=== PATIENT | male | born 1970 | race Caucasian/White ===

== ENCOUNTER 2016-11-30 16:28 | Emergency (ER) | payer OTHER ==
[~2016-11-30] VITALS: Wt 112.0 kg
[~2016-11-30 16:28] MED LIST: CEPH-443 PO; GUAI120S26 PO; HC1C30 TOP; IBUP-1542 PO
[2016-11-30 17:16] LABS: ADD SCAN DIFF NO
[2016-11-30 17:22] LABS: BASOPHILS % 0.4 % (0.0-2.0); EOSINOPHILS # 0.2 10^3/ul (0.0-0.5); EOSINOPHILS % 1.8 % (0.0-7.0); HEMATOCRIT 46.2 % (42.0-52.0); HEMOGLOBIN 16.1 g/dl (14.0-18.0); LYMPHOCYTES # 3.6 10^3/ul (0.8-2.9); LYMPHOCYTES % 43.2 % (15.0-51.0); MEAN CORPUSCULAR HEMOGLOBIN 30.1 pg (29.0-33.0); MEAN CORPUSCULAR HGB CONC 34.8 g/dl (32.0-37.0); MEAN CORPUSCULAR VOLUME 86.5 fl (82.0-101.0); MEAN PLATELET VOLUME 11.5 fl (7.4-10.4); MONOCYTE # 0.6 10^3/ul (0.3-0.9); MONOCYTES % 7.4 % (0.0-11.0); NEUTROPHIL # 3.9 10^3/ul (1.6-7.5); PLATELET COUNT 196 10^3/UL (140-415); RED BLOOD COUNT 5.34 10^6/ul (4.70-6.10); RED CELL DISTRIBUTION WIDTH 12.3 % (11.5-14.5); WHITE BLOOD COUNT 8.4 10^3/ul (4.8-10.8)
[2016-11-30 17:31] LABS: ALBUMIN 4.3 g/dl (3.3-4.9); ALBUMIN/GLOBULIN RATIO 1.22; BILIRUBIN,INDIRECT 0.2 mg/dl (0-1.1); BILIRUBIN,TOTAL 0.2 mg/dl (0.2-1.3); CALCIUM 8.9 mg/dl (8.4-10.2); CREATININE 1.12 mg/dl (0.61-1.24); POTASSIUM 3.9 mmol/L (3.5-5.1); TOTAL PROTEIN 7.8 g/dl (6.1-8.1)
[2016-11-30 17:44] LABS: ADD UMIC NO; URINE BILIRUBIN (Dip) NEGATIVE (NEGATIVE); URINE BLOOD (Dip) NEGATIVE (NEGATIVE); URINE COLOR LT. YELLOW (YELLOW); URINE GLUCOSE (Dip) NEGATIVE (NEGATIVE); URINE KETONES (Dip) TRACE (NEGATIVE); URINE LEUKOCYTE ESTERASE (Dip) NEGATIVE (NEGATIVE); URINE NITRITE (Dip) NEGATIVE (NEGATIVE); URINE TOTAL PROTEIN (Dip) NEGATIVE (NEGATIVE); URINE UROBILINOGEN (Dip) 1.0 E.U./dL (0.1-1.0)
[2016-11-30] MEDS ORDERED: CIPR500T4 PO ×2 (19:12→19:13)
[2016-11-30] MEDS ORDERED: METR500T PO (19:13)
[2016-11-30] MEDS ORDERED: DICY10CA60 PO (19:13)
--- NOTE | 2016-11-30 19:20 | ERD ---
ER Documentation Chief Complaint Date/Time DATE: 11/30/16 TIME: 19:15 Chief Complaint abd pain, diarrhea x2 mo HPI Patient is a 46-year-old male who presents to the emergency department with abdominal pain and diarrhea 2 months. Patient describes his abdominal pain to be diffuse and crampy in nature. Patient study approximately 3-4 episodes of nonbloody, mucousy, malodorous, brown liquidy episodes of diarrhea. Patient denies any recent antibiotic use. Patient denies any recent travel. Patient denies any fevers, chills, nausea, vomiting. Patient denies any chest pain, shortness of breath, diaphoresis, loss consciousness. Patient denies any other individuals in his family with similar symptoms. ROS All systems reviewed and are negative except as per history of present illness. Medications Home Meds Active Scripts Dicyclomine Hcl* (Bentyl*) 10 Mg Capsule, 10 MG PO QID, #20 CAP Prov:NITIN ART PA-C 11/30/16 Metronidazole* (Flagyl*) 500 Mg Tablet, 500 MG PO TID for 5 Days, TAB Prov:NITIN ART PA-C 11/30/16 Ciprofloxacin Hcl* (Ciprofloxacin Hcl*) 500 Mg Tablet, 500 MG PO BID for 5 Days , TAB Prov:NITIN ART PA-C 11/30/16 Ibuprofen* (Motrin*) 600 Mg Tab, 600 MG PO Q6, #30 TAB Prov:ROSEANNA ALANIS PA-C 05/21/16 Ufutxtazlzf-N-Alrvunyxim Hb* (Guaifenesin* DM Syrup) 120 Ml Syrup, 10 ML PO Q4H Y for COUGH, #120 ML Prov:ROSEANNA ALANIS PA-C 05/21/16 Cephalexin* (Keflex*) 500 Mg Capsule, 500 MG PO QID for 7 Days, CAP Prov:TRUDY MCCARTNEY PA-C 03/18/16 Hydrocortisone* Topical (Hydrocortisone* Topical) 1%-28.35 Gm Cream..g., 1 APPLIC TOP BID Y for ITCHING, #1 TUB Prov:TRUDY MCCARTNEY PA-C 03/18/16 Discontinued Scripts Ciprofloxacin Hcl* (Ciprofloxacin Hcl*) 500 Mg Tablet, 500 MG PO BID for 3 Days , TAB Prov:NITIN ART PA-C 11/30/16 Allergies Allergies: Coded Allergies: No Known Allergy (Unverified , 05/21/16) PMhx/Soc History of Surgery: No Anesthesia Reaction: No Hx Neurological Disorder: No Hx Respiratory Disorders: No Hx Cardiac Disorders: No Hx Psychiatric Problems: No Hx Miscellaneous Medical Probl: Yes (HIV POSITIVE) Hx Alcohol Use: No Hx Substance Use: No Hx Tobacco Use: No Physical Exam Vitals Vital Signs Date Time Temp Pulse Resp B/P Pulse Ox O2 Delivery O2 Flow Rate FiO2 11/30/16 21:32 98.0 68 20 134/94 99 Room Air 11/30/16 16:44 98.1 75 20 145/92 95 Physical Exam GENERAL: Well-developed, well-nourished male. Appears in no acute distress. HEAD: Normocephalic, atraumatic. EYES: Pupils are equally reactive bilaterally. EOMs grossly intact. No conjunctival erythema. No conjunctival pallor ENT: Moist mucous membranes. No uvula deviation. No kissing tonsils. NECK: Supple. No meningismus. Normal range of motion of the neck. LUNG: Clear to auscultation bilaterally. No rhonchi, wheezing, rales or coarse breath sounds. HEART: Regular rate and rhythm. No murmurs, rubs or gallops. ABDOMEN: No scars, ecchymosis or rashes noted. Soft, and nondistended. Nontender to palpation of all 4 quadrants. Positive bowel sounds in all four quadrants. No rebound tenderness, no guarding. (-) McBurney's point tenderness. No CVA tenderness. BACK: No midline tenderness. EXTREMITIES: Equal pulses bilaterally. No peripheral clubbing, cyanosis or edema. No unilateral leg swelling. NEUROLOGIC: Alert and oriented. Moving all four extremities without any difficulty. Normal speech. Steady gait. SKIN: Normal color. Warm and dry. No rashes or lesions. Result Diagram: 11/30/16 1715 11/30/16 1715 Results 24 hrs Laboratory Tests Test 11/30/16 17:15 White Blood Count 8.410^3/ul Red Blood Count 5.3410^6/ul Hemoglobin 16.1g/dl Hematocrit 46.2% Mean Corpuscular Volume 86.5fl Mean Corpuscular Hemoglobin 30.1pg Mean Corpuscular Hemoglobin Concent 34.8g/dl Red Cell Distribution Width 12.3% Platelet Count 76719^3/UL Mean Platelet Volume 11.5fl Neutrophils % 47.0% Lymphocytes % 43.2% Monocytes % 7.4% Eosinophils % 1.8% Basophils % 0.4% Nucleated Red Blood Cells % 0.0/100WBC Neutrophils # 3.910^3/ul Lymphocytes # 3.610^3/ul Monocytes # 0.610^3/ul Eosinophils # 0.210^3/ul Basophils # 0.010^3/ul Nucleated Red Blood Cells # 0.010^3/ul Urine Color LT. YELLOW Urine Clarity CLEAR Urine pH 6.0 Urine Specific [place] 1.025 Urine Ketones TRACE Urine Nitrite NEGATIVE Urine Bilirubin NEGATIVE Urine Urobilinogen 1.0 E.U./dL Urine Leukocyte Esterase NEGATIVE Urine Hemoglobin NEGATIVE Urine Glucose NEGATIVE% Urine Total Protein NEGATIVE Sodium Level 139mmol/L Potassium Level 3.9mmol/L Chloride Level 106mmol/L Carbon Dioxide Level 24mmol/L Anion Gap 13 Blood Urea Nitrogen 13mg/dl Creatinine 1.12mg/dl Glucose Level 108mg/dl Calcium Level 8.9mg/dl Total Bilirubin 0.2mg/dl Direct Bilirubin 0.00mg/dl Indirect Bilirubin 0.2mg/dl Aspartate Amino Transf (AST/SGOT) 50IU/L Alanine Aminotransferase (ALT/SGPT) 58IU/L Alkaline Phosphatase 109IU/L Total Protein 7.8g/dl Albumin 4.3g/dl Globulin 3.50g/dl Albumin/Globulin Ratio 1.22 Lipase 131U/L Procedures/MDM ED COURSE: The patient was stable throughout ED course. I kept the patient and/or family informed of laboratory and diagnostic imaging results throughout the ED course. DIAGNOSTIC IMAGING: Read by radiologist. Patient Name Jae Monroe Study Date 11/30/2016 5:53 PM Patient 1970 Accession No. [id number] Referring Physician Nitin Art Pa-c CLINICAL INDICATION: Abdominal Pain TECHNIQUE: AP abdomen x-ray. COMPARISON: None. FINDINGS: There is stool and bowel gas scattered throughout the colon. There is no evidence of small bowel obstruction. There are no abnormal calcifications overlying the urinary tracts. The osseus structures are unremarkable. IMPRESSION: No definite abnormalities are identified. RPTAT:AAJS Signed By: Jesus Elena M.d 11/30/2016 6:56:52 PM MEDICAL DECISION MAKING: This is a 46-year-old male who presents with diffuse abdominal pain and diarrhea 2 months. Anabiotic use or recent travel. Vital signs were reviewed. Patient is afebrile. CBC showed no evidence of systemic infection or severe anemia. CMP showed no evidence of electrolyte abnormalities, severe acidosis, alkalosis, renal failure, or liver disease.Lipase showed no evidence of acute pancreatitis. UA showed no evidence of acute infection or hematuria. KUB was unremarkable. At this time, patient's presentation is most consistent with diarrhea unknown etiology. Given that patient's symptoms have lasted for > 2 months, source may be infectious. I have a much lower clinical concern for acute coronary syndrome , AAA, mesenteric ischemia, lower lobe pneumonia, DKA, bowel perforation, cholecystitis, choledocholithiasis, ascending cholangitis, hepatic abscess, pancreatitis, PUD, diverticulitis, UTI, pyelonephritis, nephrolithiasis, appendicitis, toxic megacolon, ileus. Stool studies were ordered however patient was unable to provide a sample today. Patient was advised that he will need to follow-up with his primary care physician for stool studies. At this time unable to rule out the definitive cause of the patient's diarrhea. I will treat the patient empirically with antibiotics at this time. PRESCRIPTIONS: Bentyl, Flagyl, Shardaro DISCHARGE: At this time, patient is stable for discharge and outpatient management. Patient was advised to follow-up with his primary care physician for stool studies. Patient given a copy of all imaging and blood work obtained today. I have instructed the patient to follow-up with his/her primary care physician in 1-2 days. Patient was advised that he will need to follow-up with his primary care physician and/or GI specialist for any further symptoms. I have instructed the patient to promptly return to the ER at any time for any new or worsening symptoms including increased pain, nausea, vomiting, diarrhea, fever, weakness or LOC. The patient and/or family expressed understanding of and agreement with this plan. All questions were answered. Home care instructions were provided. Departure Diagnosis: Primary Impression: Diarrhea Diarrhea type: unspecified type Qualified Code: R19.7 - Diarrhea, unspecified type Condition: Stable Patient Instructions: Treating Diarrhea Referrals: [facility] Additional Instructions: Call your primary care doctor TOMORROW for an appointment during the next 1-2 days.See the doctor sooner or return here if your condition worsens before your appointment time. Follow-up with your primary care physician for stool studies. Unable to rule out definitive cause of diarrhea at this time. NITIN ART PA-C Nov 30, 2016 19:20
[2016-11-30 21:32] VITALS: BP 134/94; PULSE 68; RESP 20; TEMP 98
--- NOTE | 2016-12-03 21:46 | RADRPT ---
PROCEDURE: XR Abdomen. CLINICAL INDICATION: Abdominal Pain TECHNIQUE: AP abdomen x-ray. COMPARISON: None. FINDINGS: There is stool and bowel gas scattered throughout the colon. There is no evidence of small bowel ob struction. There are no abnormal calcifications overlying the urinary tracts. The osseus structures are unremarkable. IMPRESSION: No definite abnormalities are identified. RPTAT:AAJJ Jesus Elena Physician Date Time Electronically viewed and signed by Jesus Elena Physician on 11/30/2016 18:56 /
== END 2016-11-30 21:32 | disposition home or self-care (01) ==
LOC: FTE 16:28
DX: R19.7 Diarrhea, unspecified (principal); Z21 Asymptomatic human immunodeficiency virus [HIV] infection status
CPT/HCPCS: 36415; 74000; 80053; 81003; 83690; 85025

== ENCOUNTER 2017-01-20 13:19 | Emergency (ER) | payer OTHER ==
[~2017-01-20] VITALS: Ht 172.7 cm; Wt 111.5 kg
[~2017-01-20 13:19] MED LIST changes: +CIPR500T4 PO; +DICY10CA60 PO; +METR500T PO
[2017-01-20 13:32] VITALS: Ht 172.7 cm; Wt 111.5 kg
[2017-01-20] MEDS ORDERED: PROM5SYR2 PO (14:26)
[2017-01-20] MEDS ORDERED: ACET325T33 PO (14:26)
[2017-01-20] MEDS ORDERED: AZIT250T94 PO (14:26)
[2017-01-20] MEDS ORDERED: SODI30SP2 NS (14:26)
--- NOTE | 2017-01-20 14:57 | ERD ---
ER Documentation Chief Complaint Date/Time DATE: 01/20/17 TIME: 14:56 Chief Complaint FEVER,COUGH,LAWSON,BACK PAIN HPI This is a 46-year-old male presenting to the emergency department complaining of fever, sore throat, cough, headache, nasal congestion for the past 2 days. Patient rates as moderate in severity. He states that he has tried lozenges without any relief. Patient admits to having thoracic and lumbar back pain, describing it as achy and constant and worse with cough. Patient denies any vomiting, diarrhea, shortness of breath or chest pain ROS All systems reviewed and are negative except as per history of present illness. Medications Home Meds Active Scripts Acetaminophen* (Tylenol*) 325 Mg Tablet, 2 TAB PO Q6 Y for PAIN AND OR ELEVATED TEMP, #20 TAB Prov:ADRIA TONEY PA-C 01/20/17 Promethazine HCl/Codeine (Prometh-Codein 6.25-10 mg/5 ml) 5 Ml Syrup, 5 ML PO Q6 , #60 ML Prov:ADRIA TONEY PA-C 01/20/17 Azithromycin* (Zithromax*) 250 Mg Tablet, 250 MG PO .ZPACK DIRECTED, #6 TAB TAKE 500 MG (2 TABS) THE FIRST DAY THEN 250 MG (1 TAB) DAYS 2-5 Prov:ADRIA TONEY PA-C 01/20/17 Sodium Chloride (Saline Nasal [place]) 30 Ml [place], 30 ML NS BID for 5 Days, SPRAY Prov:ADRIA TONEY PA-C 01/20/17 Dicyclomine Hcl* (Bentyl*) 10 Mg Capsule, 10 MG PO QID, #20 CAP Prov:NITIN MAHONEY PA-C 11/30/16 Metronidazole* (Flagyl*) 500 Mg Tablet, 500 MG PO TID for 5 Days, TAB Prov:NITIN MAHONEY PA-C 11/30/16 Ciprofloxacin Hcl* (Ciprofloxacin Hcl*) 500 Mg Tablet, 500 MG PO BID for 5 Days , TAB Prov:NITIN MAHONEY PA-C 11/30/16 Ibuprofen* (Motrin*) 600 Mg Tab, 600 MG PO Q6, #30 TAB Prov:ROSEANNA ALANIS PA-C 05/21/16 Hipqtpgcuvs-M-Ajfyharyuh Hb* (Guaifenesin* DM Syrup) 120 Ml Syrup, 10 ML PO Q4H Y for COUGH, #120 ML Prov:ROSEANNA ALANISKarina CASSIDY 05/21/16 Cephalexin* (Keflex*) 500 Mg Capsule, 500 MG PO QID for 7 Days, CAP Prov:TRUDY MCCARTNEY PA-C 03/18/16 Hydrocortisone* Topical (Hydrocortisone* Topical) 1%-28.35 Gm Cream..g., 1 APPLIC TOP BID Y for ITCHING, #1 TUB Prov:TRUDY MCCARTNEY PA-C 03/18/16 Allergies Allergies: Coded Allergies: No Known Allergy (Unverified , 05/21/16) PMhx/Soc History of Surgery: No Anesthesia Reaction: No Hx Neurological Disorder: No Hx Respiratory Disorders: No Hx Cardiac Disorders: No Hx Psychiatric Problems: No Hx Miscellaneous Medical Probl: Yes (HIV POSITIVE) Hx Alcohol Use: No Hx Substance Use: No Hx Tobacco Use: No Physical Exam Vitals Vital Signs Date Time Temp Pulse Resp B/P Pulse Ox O2 Delivery O2 Flow Rate FiO2 01/20/17 13:32 99.1 88 18 141/85 98 Physical Exam GENERAL: well-developed/well-nourished, in no apparent distress, non-toxic appearing HEAD: NC/AT, no swelling noted in frontal or maxillary areas EARS: bilateral tympanic membrane is intact without erythema or effusion NARES: Congested THROAT: oropharynx non-erythematous EYES: Conjunctiva normal NECK: Supple, no lymphadenopathy PULM: CTA bilaterally, no rales, rhonchi, or wheezing heard CV: Normal S1S2, RRR, good capillary refill GI: Soft, non-distended, normal bowel sounds, non-tender BACK: No midline tenderness, no masses EXT No clubbing, cyanosis, or edema NEURO: Alert and Orientated SKIN: Intact, normal turgor PSYCH: Normal mood and mentation Procedures/MDM MDM: 46-year-old male presents to the ER with upper respiratory infection, which is most likely viral. My clinical suspicion is low suspicion for pneumonia , strep pharyngitis, or pulmonary emergencies due to physical examination. Patient's lungs were clear on examination. DISPOSITION: hemodynamically stable for discharge for home. Prescription for promethazine with codeine, Flonase, Tylenol was given to patient, discussed to return to the ED if not improving as expected or follow-up with a primary care physician. Patient understood and agreed with this plan. Departure Diagnosis: Primary Impression: URI (upper respiratory infection) Condition: Stable Patient Instructions: Preventing Common Respiratory Infections, Uri, Viral, No Abx (Adult) Additional Instructions: Visite a gutiérrez mdico shashiana para un EXAMEN.Regrese a estas instalaciones si no se mejora annemarie esperbamos o annemarie le dijimos. Marcus toda la medicina lisy y annemarie se le indic. Regrese a estas instalaciones si no se mejora annemarie esperbamos o annemarie le dijimos. La medicina que se le recet puede causarle sueo.NO DEBE MANEJAR NI OPERAR MAQUINARIAS PELIGROSAS mientras esta tomando esta medicina! ADRIA TONEY PA-C Jan 20, 2017 14:57
== END 2017-01-20 14:28 | disposition home or self-care (01) ==
LOC: E/R 13:19
DX: J06.9 Acute upper respiratory infection, unspecified (principal)
CPT/HCPCS: 99284

== ENCOUNTER 2017-02-09 18:53 | Emergency (ER) | payer OTHER ==
[~2017-02-09] VITALS: Wt 112.5 kg
[~2017-02-09 18:53] MED LIST changes: +ACET325T33 PO; +AZIT250T94 PO; +PROM5SYR2 PO; +SODI30SP2 NS
[2017-02-09] MEDS ORDERED: ONDANSETRON 4 MG INJ IV STA (19:21)
[2017-02-09] MEDS ORDERED: SOD CHLORIDE 0.9% 1,000 ML IV STA (19:21)
[2017-02-09] MEDS ORDERED: FAMOTIDINE 20 MG INJ IV STA (19:21)
[2017-02-09 19:25] LABS: URINE BLOOD (Dip) POC 3+ (NEGATIVE)
[2017-02-09 19:37] LABS: ADD SCAN DIFF NO
[2017-02-09 19:38] LABS: BASOPHILS % 0.3 % (0.0-2.0); EOSINOPHILS % 0.3 % (0.0-7.0); HEMATOCRIT 44.6 % (42.0-52.0); HEMOGLOBIN 15.6 g/dl (14.0-18.0); LYMPHOCYTES # 1.5 10^3/ul (0.8-2.9); LYMPHOCYTES % 12.8 % (15.0-51.0); MEAN CORPUSCULAR HEMOGLOBIN 30.5 pg (29.0-33.0); MEAN CORPUSCULAR VOLUME 87.3 fl (82.0-101.0); MEAN PLATELET VOLUME 11.4 fl (7.4-10.4); MONOCYTE # 0.7 10^3/ul (0.3-0.9); MONOCYTES % 6.3 % (0.0-11.0); NEUTROPHIL # 9.4 10^3/ul (1.6-7.5); PLATELET COUNT 172 10^3/UL (140-415); RED BLOOD COUNT 5.11 10^6/ul (4.70-6.10); RED CELL DISTRIBUTION WIDTH 12.5 % (11.5-14.5); WHITE BLOOD COUNT 11.7 10^3/ul (4.8-10.8)
[2017-02-09 20:02] LABS: ADD UMIC YES; UR ASCORBIC ACID NEGATIVE (NEGATIVE); UR BILIRUBIN (Dip) NEGATIVE (NEGATIVE); UR BLOOD (Dip) 3+ mg/dL (NEGATIVE); UR BUDDING YEAST FEW /HPF (NONE SEEN); UR CLARITY CLOUDY (CLEAR); UR COLOR YELLOW (YELLOW); UR GLUCOSE (Dip) NEGATIVE (NEGATIVE); UR KETONES (Dip) NEGATIVE (NEGATIVE); UR LEUKOCYTE ESTERASE (Dip) NEGATIVE Leu/ul (NEGATIVE); UR MUCUS FEW /HPF (NONE SEEN); UR NITRITE (Dip) NEGATIVE (NEGATIVE); UR RBC > 182 /HPF (0-5); UR SPECIFIC GRAVITY (Dip) 1.028 (1.003-1.030); UR TOTAL PROTEIN (Dip) 1+ mg/dl (NEGATIVE); UR UROBILINOGEN (Dip) NEGATIVE (NEGATIVE)
[2017-02-09 20:02] LABS: ALBUMIN/GLOBULIN RATIO 1.51; BILIRUBIN,INDIRECT 0.2 mg/dl (0-1.1); BILIRUBIN,TOTAL 0.2 mg/dl (0.2-1.3); CALCIUM 9.2 mg/dl (8.4-10.2); CREATININE 1.4 mg/dl (0.61-1.24); POTASSIUM 4.1 mmol/L (3.5-5.1); TOTAL PROTEIN 8.3 g/dl (6.1-8.1)
[2017-02-09] MEDS ORDERED: morphine 4 MG/ML VIAL IV STA (20:11)
--- NOTE | 2017-02-09 20:35 | RADRPT ---
PROCEDURE: CT Abdomen and Pelvis without contrast CLINICAL INDICATION: The abdominal pain TECHNIQUE: Transaxial images were obtained through the abdomen and pelvis on a multi-slice scanner without the intravenous contrast administration. No oral contrast had previously been given. Sagit lisy and coronal re-formations were subsequently reconstructed. One or more of the following dose reduction techniques were used: - Automated exposure control. - Adjustment of the mA and/or kV according to patient size. - Use of iterative reconstruction technique. Radiation dose: CTDIvol = 22.60 mGy; DLP = 1572.35 mGy-cm. COMPARISON: No prior studies are available for comparison. FINDINGS: Lung bases: The visualized lung bases appear unremarkable. Liver: The liver is enlarged and appears diffusely fatty infiltrated with no focal lesion evident. Gallbladder: The wall is not thickened. No radiopaque stones are identified. Bile ducts: The intra and extrahepatic bile ducts are normal in caliber. Pancreas: Appears normal with no mass or inflammation evident. Spleen: Normal in size with no focal lesion. Adrenals: Normal with no mass identified. Kidneys, ureters and bladder: The right kidney and ureter appear unremarkable. On the left, there i s a 7 x 6 x 4 mm ureterolith seen in the mid left ureter associated with moderate left hydronephrosi s and proximal hydroureter with perinephric stranding. No nephrolith is evident. The distal ureter appears unremarkable as does the bladder. Reproductive organs: Unremarkable. Stomach and bowel: The stomach and bowel appear unremarkable without evidence of obstruction or infl ammation. A few diverticuli are seen within the sigmoid colon without evidence of diverticulitis. Appendix: A normal vermiform appendix is evident. Peritoneum: No free intraperitoneal fluid or air is identified. Tiny bilateral fat containing inguin al hernias are noted. Aorta: Normal in caliber with no aneurysmal dilatation. IVC: Unremarkable. Lymph nodes: No pathologically enlarged nodes are identified. Osseous structures: The osseous elements appear intact. IMPRESSION: 1. A 7 x 6 x 4 mm ureterolith is seen in the mid left ureter associated moderate left hydronephrosi s, perinephric stranding, and proximal hydroureter. The left kidney and left ureter appear unremark able as does the bladder. 2. There are a few diverticuli within the sigmoid colon but there is no evidence of bowel obstructi on or inflammation with a normal-appearing vermiform appendix. 3. Hepatomegaly with diffuse fatty infiltration. 4. Tiny fat containing inguinal hernias. Physician Deepak Date Time Electronically viewed and signed by Pauline Moulton Physician on 02/09/2017 20:35 /
--- NOTE | 2017-02-09 20:41 | ERD ---
ER Documentation Chief Complaint Date/Time DATE: 02/09/17 TIME: 20:39 Chief Complaint left abd pain x 4 hours HPI This is a 46-year-old male who presents to the emergency room for evaluation of left-sided abdominal pain that he has had for the past 4 hours. The patient states that his pain as a sharp pain with mild radiation to the groin. He denies any painful urination or dysuria. The patient denies any blood in his urine and came to the ER today for evaluation. He denies any aggravating or relieving factors for his pain ROS All systems reviewed and are negative except as per history of present illness. Medications Home Meds Active Scripts Acetaminophen* (Tylenol*) 325 Mg Tablet, 2 TAB PO Q6 Y for PAIN AND OR ELEVATED TEMP, #20 TAB Prov:ADRIA TONEY PA-C 01/20/17 Promethazine HCl/Codeine (Prometh-Codein 6.25-10 mg/5 ml) 5 Ml Syrup, 5 ML PO Q6 , #60 ML Prov:ADRIA TONEY PA-C 01/20/17 Azithromycin* (Zithromax*) 250 Mg Tablet, 250 MG PO .ZPACK DIRECTED, #6 TAB TAKE 500 MG (2 TABS) THE FIRST DAY THEN 250 MG (1 TAB) DAYS 2-5 Prov:ADRIA TONEY PA-C 01/20/17 Sodium Chloride (Saline Nasal [place]) 30 Ml [place], 30 ML NS BID for 5 Days, SPRAY Prov:ADRIA TONEY PA-C 01/20/17 Dicyclomine Hcl* (Bentyl*) 10 Mg Capsule, 10 MG PO QID, #20 CAP Prov:NITIN MAHONEY PA-C 11/30/16 Metronidazole* (Flagyl*) 500 Mg Tablet, 500 MG PO TID for 5 Days, TAB Prov:NITIN MAHONEY PA-C 11/30/16 Ciprofloxacin Hcl* (Ciprofloxacin Hcl*) 500 Mg Tablet, 500 MG PO BID for 5 Days , TAB Prov:NITIN MAHONEY PA-C 11/30/16 Ibuprofen* (Motrin*) 600 Mg Tab, 600 MG PO Q6, #30 TAB Prov:ROSEANNA ALANIS PA-C 05/21/16 Rfmrjnsiizt-W-Guxhfwveov Hb* (Guaifenesin* DM Syrup) 120 Ml Syrup, 10 ML PO Q4H Y for COUGH, #120 ML Prov:ROSEANNA ALANISKarina CASSIDY 05/21/16 Cephalexin* (Keflex*) 500 Mg Capsule, 500 MG PO QID for 7 Days, CAP Prov:TRUDY MCCARTNEY PA-C 03/18/16 Hydrocortisone* Topical (Hydrocortisone* Topical) 1%-28.35 Gm Cream..g., 1 APPLIC TOP BID Y for ITCHING, #1 TUB Prov:TRUDY MCCARTNEY PA-C 03/18/16 Allergies Allergies: Coded Allergies: No Known Allergy (Unverified , 02/09/17) PMhx/Soc History of Surgery: No Anesthesia Reaction: No Hx Neurological Disorder: No Hx Respiratory Disorders: No Hx Cardiac Disorders: No Hx Psychiatric Problems: No Hx Miscellaneous Medical Probl: Yes (HIV POSITIVE) Hx Alcohol Use: No Hx Substance Use: No Hx Tobacco Use: No Smoking Status: Never smoker Physical Exam Vitals Vital Signs Date Time Temp Pulse Resp B/P Pulse Ox O2 Delivery O2 Flow Rate FiO2 02/09/17 18:55 96.4 69 16 156/67 96 Physical Exam INITIAL VITAL SIGNS: Reviewed by me GENERAL: The patient is well developed and appropriate for usual state of health in no apparent distress HEENT: Pupils equal, round, and reactive to light. EOMI. There is no scleral icterus. NECK: C-spine is soft and supple, there is no meningismus. There is no cervical lymphadenopathy. LUNGS: Clear to auscultation bilaterally. There are no rales, wheezes or rhonchi. HEART: Regular rate and rhythm, no murmurs, clicks, rubs or gallops. ABDOMEN: Left-sided CVAT, otherwise soft, non-tender, non-distended. There are bowel sounds in all four quadrants. No rebound or guarding. EXTREMITIES: There is no peripheral cyanosis or edema. No focal swelling or erythema. NEUROLOGICAL: The patient moves all four extremities with 5/5 strength. Cranial nerves II - XII are intact. Normal gait. Alert and oriented SKIN: There is no apparent rash or petechiae. HEME/LYMPHATIC: There is no evidence of excessive bruising or lymphedema. PSYCHIATRIC: The patient does not appear anxious or depressed. Result Diagram: 02/09/17192902/09/171929 Results 24 hrs Laboratory Tests Test 02/09/17 19:25 02/09/17 19:29 02/09/17 19:30 Urine Color YELLOW Urine Clarity CLOUDY Urine pH 5.0 Urine Specific [place] 1.028 Urine Ketones NEGATIVEmg/dL Urine Nitrite NEGATIVEmg/dL Urine Bilirubin NEGATIVEmg/dL Urine Urobilinogen NEGATIVEmg/dL Urine Leukocyte Esterase NEGATIVELeu/ul Urine Microscopic RBC > 182/HPF Urine Microscopic WBC 1/HPF Urine Calcium Oxalate Crystals FEW/HPF Urine Mucus FEW/HPF Urine Yeast (Budding) FEW/HPF Urine Hemoglobin 3+mg/dL Urine Glucose NEGATIVEmg/dL Urine Total Protein 1+mg/dl Bedside Urine pH (LAB) 5.5 Bedside Urine Protein (LAB) 2+ Bedside Urine Glucose (UA) Negative Bedside Urine Ketones (LAB) Negative Bedside Urine Blood 3+ Bedside Urine Nitrite (LAB) Negative Bedside Urine Leukocyte Esterase (L Negative White Blood Count 11.710^3/ul Red Blood Count 5.1110^6/ul Hemoglobin 15.6g/dl Hematocrit 44.6% Mean Corpuscular Volume 87.3fl Mean Corpuscular Hemoglobin 30.5pg Mean Corpuscular Hemoglobin Concent 35.0g/dl Red Cell Distribution Width 12.5% Platelet Count 37061^3/UL Mean Platelet Volume 11.4fl Neutrophils % 80.0% Lymphocytes % 12.8% Monocytes % 6.3% Eosinophils % 0.3% Basophils % 0.3% Nucleated Red Blood Cells % 0.0/100WBC Neutrophils # 9.410^3/ul Lymphocytes # 1.510^3/ul Monocytes # 0.710^3/ul Eosinophils # 0.010^3/ul Basophils # 0.010^3/ul Nucleated Red Blood Cells # 0.010^3/ul Sodium Level 143mmol/L Potassium Level 4.1mmol/L Chloride Level 107mmol/L Carbon Dioxide Level 25mmol/L Anion Gap 15 Blood Urea Nitrogen 17mg/dl Creatinine 1.40mg/dl Glucose Level 126mg/dl Calcium Level 9.2mg/dl Total Bilirubin 0.2mg/dl Direct Bilirubin 0.00mg/dl Indirect Bilirubin 0.2mg/dl Aspartate Amino Transf (AST/SGOT) 45IU/L Alanine Aminotransferase (ALT/SGPT) 63IU/L Alkaline Phosphatase 108IU/L Total Protein 8.3g/dl Albumin 5.0g/dl Globulin 3.30g/dl Albumin/Globulin Ratio 1.51 Lipase 140U/L Current Medications Medications (Trade) Dose Ordered Sig/Ramakrishna Route PRN Reason Start Time Stop Time Status Last Admin Dose Admin Sodium Chloride (NS) 1,000 ml @ 1,000 mls/hr Q1H STAT IV 02/09/17 19:21 02/09/17 20:20 DC 02/09/17 19:30 Ondansetron HCl (Zofran Inj) 4 mg ONCE STAT IV 02/09/17 19:21 02/09/17 19:23 DC 02/09/17 19:30 Famotidine (Pepcid Iv) 20 mg ONCE STAT IV 02/09/17 19:21 02/09/17 19:23 DC 02/09/17 19:30 Morphine Sulfate (morphine) 4 mg ONCE STAT IV 02/09/17 20:11 02/09/17 20:12 DC 02/09/17 20:15 Procedures/MDM CT abdomen pelvis without: 1. A 7 x 6 x 4 mm ureterolith is seen in the mid left ureter associated moderate left hydronephrosis, perinephric stranding, and proximal hydroureter. The left kidney and left ureter appear unremarkable as does the bladder. 2. There are a few diverticuli within the sigmoid colon but there is no evidence of bowel obstruction or inflammation with a normal-appearing vermiform appendix. 3. Hepatomegaly with diffuse fatty infiltration. 4. Tiny fat containing inguinal hernias. This 46-year-old male presents to the ER for evaluation of left-sided abdominal pain that he has had for the past 4 hours. The patient did have some left- sided CVAT on my examination. A urinalysis does reveal blood in urine. Lab work was obtained and a CT was obtained which did confirm my suspicion of a left -sided ureterolith. The patient is a afebrile, no white blood cells in the urine and is urinating without difficulty. The patient's pain is controlled with morphine in the ER and he will be discharged home with a prescription for [place] and Flomax with instructions to follow with his primary care physician or return to the ER if his symptoms do not improve. Departure Diagnosis: Primary Impression: Ureterolithiasis Additional Impressions: Left flank pain Acute left flank pain Condition: Stable JULI SAMANIEGO DO Feb 09, 2017 20:41
[2017-02-09] MEDS ORDERED: HYDR-906 PO (20:42)
[2017-02-09] MEDS ORDERED: TAMS-14 PO (20:42)
[2017-02-09] MEDS ORDERED: TAMSULOSIN (SR) 0.4 MG CAP PO ONE (21:00)
== END 2017-02-09 21:24 | disposition home or self-care (01) ==
LOC: FTE 18:53
DX: N20.1 Calculus of ureter (principal)
CPT/HCPCS: 74176; 80053; 81001; 83690; 85025; 96374; 96375; J2270; J2405; J7030; Z7502; Z7610; 81003

== ENCOUNTER 2017-03-04 16:02 | Emergency (ER) | payer OTHER ==
[~2017-03-04] VITALS: Ht 170.2 cm; Wt 112.0 kg
[~2017-03-04 16:02] MED LIST changes: +HYDR-906 PO; +TAMS-14 PO
[2017-03-04 16:05] VITALS: Ht 170.2 cm; Wt 112.0 kg
[2017-03-04] MEDS ORDERED: SOD CHLORIDE 0.9% 1,000 ML IV STA (16:36)
[2017-03-04] MEDS ORDERED: ONDANSETRON 4 MG INJ IV STA (16:36)
[2017-03-04] MEDS ORDERED: KETOROLAC 30 MG INJ IV STA (16:36)
[2017-03-04 16:54] LABS: ADD SCAN DIFF NO
[2017-03-04 16:55] LABS: BASOPHIL # 0.1 10^3/ul (0.0-0.1); BASOPHILS % 0.5 % (0.0-2.0); EOSINOPHILS # 0.1 10^3/ul (0.0-0.5); EOSINOPHILS % 1.5 % (0.0-7.0); HEMATOCRIT 43.9 % (42.0-52.0); HEMOGLOBIN 15.3 g/dl (14.0-18.0); LYMPHOCYTES # 3.1 10^3/ul (0.8-2.9); LYMPHOCYTES % 32.6 % (15.0-51.0); MEAN CORPUSCULAR HEMOGLOBIN 30.7 pg (29.0-33.0); MEAN CORPUSCULAR HGB CONC 34.9 g/dl (32.0-37.0); MEAN PLATELET VOLUME 11.6 fl (7.4-10.4); MONOCYTE # 0.8 10^3/ul (0.3-0.9); MONOCYTES % 8.4 % (0.0-11.0); NEUTROPHIL # 5.4 10^3/ul (1.6-7.5); NEUTROPHILS % 56.9 % (39.0-77.0); PLATELET COUNT 182 10^3/UL (140-415); RED BLOOD COUNT 4.99 10^6/ul (4.70-6.10); RED CELL DISTRIBUTION WIDTH 12.3 % (11.5-14.5); WHITE BLOOD COUNT 9.5 10^3/ul (4.8-10.8)
--- NOTE | 2017-03-04 16:57 | ERD ---
ER Documentation Chief Complaint Date/Time DATE: 03/04/17 TIME: 16:54 Chief Complaint LLQ PAIN X07/14 W/ NAUSEA HPI This is a 47-year-old male presents to the ER with left lower quadrant pain that started yesterday. Patient had a similar episode 2 weeks ago and was diagnosed with kidney stones. Patient states that pain is intermittent and stabbing in nature it is nonradiating. He has not tried anything for the pain. He admits to nausea however denies vomiting. He also admits to watery nonbloody diarrhea. He denies any fevers or chills. He denies any urinary frequency or dysuria he denies any hematuria. Patient denies any testicular pain. ROS 12 point review of systems was done, all negative except per HPI. Medications Home Meds Active Scripts Tamsulosin Hcl* (Flomax*) 0.4 Mg Cap.er.24h, 0.4 MG PO QPM, #5 CAP Prov:NOÉ PEDROZA 03/04/17 Ondansetron Hcl* (Zofran*) 4 Mg Tab, 4 MG PO Q4H Y for NAUSEA AND OR VOMITING for 5 Days, TAB Prov:NOÉ PEDROZA 03/04/17 Ibuprofen* (Motrin*) 600 Mg Tab, 600 MG PO Q6, #30 TAB Prov:NOÉ PEDROZA 03/04/17 Hydrocodone/Acetaminophen ([place] 5-325 Tablet) 1 Each Tablet, 1 TAB PO Q6H Y for PAIN, #20 TAB Prov:NOÉ PEDROZA 03/04/17 Tamsulosin Hcl* (Flomax*) 0.4 Mg Cap.er.24h, 0.4 MG PO QPM, #10 CAP Prov:JULI SAMANIEGO DO 02/09/17 Hydrocodone/Acetaminophen ([place] 5-325 Tablet) 1 Each Tablet, 1 TAB PO Q6H Y for PAIN, #15 TAB Prov:JULI SAMANIEGO DO 02/09/17 Acetaminophen* (Tylenol*) 325 Mg Tablet, 2 TAB PO Q6 Y for PAIN AND OR ELEVATED TEMP, #20 TAB Prov:ADRIA TONEY PA-C 01/20/17 Promethazine HCl/Codeine (Prometh-Codein 6.25-10 mg/5 ml) 5 Ml Syrup, 5 ML PO Q6 , #60 ML Prov:ADRIA TONEY PA-C 01/20/17 Azithromycin* (Zithromax*) 250 Mg Tablet, 250 MG PO .VíctorPACK DIRECTED, #6 TAB TAKE 500 MG (2 TABS) THE FIRST DAY THEN 250 MG (1 TAB) DAYS 2-5 Prov:ADRIA TONEY PA-C 01/20/17 Sodium Chloride (Saline Nasal [place]) 30 Ml [place], 30 ML NS BID for 5 Days, SPRAY Prov:ADRIA TONEY PA-C 01/20/17 Dicyclomine Hcl* (Bentyl*) 10 Mg Capsule, 10 MG PO QID, #20 CAP Prov:NITIN MAHONEY PA-C 11/30/16 Metronidazole* (Flagyl*) 500 Mg Tablet, 500 MG PO TID for 5 Days, TAB Prov:NITIN MAHONEY PA-C 11/30/16 Ciprofloxacin Hcl* (Ciprofloxacin Hcl*) 500 Mg Tablet, 500 MG PO BID for 5 Days , TAB Prov:NITIN MAHONEY PA-C 11/30/16 Ibuprofen* (Motrin*) 600 Mg Tab, 600 MG PO Q6, #30 TAB Prov:ROSEANNA ALANIS PA-C 05/21/16 Thiwqwfdxvw-N-Lavblmwkev Hb* (Guaifenesin* DM Syrup) 120 Ml Syrup, 10 ML PO Q4H Y for COUGH, #120 ML Prov:ROSEANNA ALANIS PA-C 05/21/16 Cephalexin* (Keflex*) 500 Mg Capsule, 500 MG PO QID for 7 Days, CAP Prov:TRUDY MCCARTNEY PA-C 03/18/16 Hydrocortisone* Topical (Hydrocortisone* Topical) 1%-28.35 Gm Cream..g., 1 APPLIC TOP BID Y for ITCHING, #1 TUB Prov:TRUDY MCCARTNEY PA-C 03/18/16 Allergies Allergies: Coded Allergies: No Known Allergy (Unverified , 02/09/17) PMhx/Soc History of Surgery: No Anesthesia Reaction: No Hx Neurological Disorder: No Hx Respiratory Disorders: No Hx Cardiac Disorders: No Hx Psychiatric Problems: No Hx Miscellaneous Medical Probl: Yes (HIV POSITIVE) Hx Alcohol Use: No Hx Substance Use: No Hx Tobacco Use: No Smoking Status: Never smoker Physical Exam Vitals Vital Signs Date Time Temp Pulse Resp B/P Pulse Ox O2 Delivery O2 Flow Rate FiO2 03/04/17 16:05 98.1 77 18 139/94 96 Physical Exam GENERAL: The patient is well developed and appropriate for usual state of health , in no apparent distress. HEENT: Atraumatic CHEST: Clear to auscultation bilaterally. There are no rales, wheezes or rhonchi. HEART: Regular rate and rhythm. No murmurs, clicks, rubs or gallops. ABDOMEN: Soft, nontender and nondistended. Good bowel sounds. No rebound or guarding. No gross peritonitis. No gross organomegaly or masses. No Leal sign or McBurney point tenderness. BACK: No midline or flank tenderness. NEURO: Alert and oriented. Result Diagram: 03/04/17 1645 03/04/17 1645 Results 24 hrs Laboratory Tests Test 03/04/17 16:45 White Blood Count 9.510^3/ul Red Blood Count 4.9910^6/ul Hemoglobin 15.3g/dl Hematocrit 43.9% Mean Corpuscular Volume 88.0fl Mean Corpuscular Hemoglobin 30.7pg Mean Corpuscular Hemoglobin Concent 34.9g/dl Red Cell Distribution Width 12.3% Platelet Count 64909^3/UL Mean Platelet Volume 11.6fl Neutrophils % 56.9% Lymphocytes % 32.6% Monocytes % 8.4% Eosinophils % 1.5% Basophils % 0.5% Nucleated Red Blood Cells % 0.0/100WBC Neutrophils # 5.410^3/ul Lymphocytes # 3.110^3/ul Monocytes # 0.810^3/ul Eosinophils # 0.110^3/ul Basophils # 0.110^3/ul Nucleated Red Blood Cells # 0.010^3/ul Urine Color YELLOW Urine Clarity CLEAR Urine pH 6.0 Urine Specific [place] 1.026 Urine Ketones NEGATIVEmg/dL Urine Nitrite NEGATIVEmg/dL Urine Bilirubin NEGATIVEmg/dL Urine Urobilinogen NEGATIVEmg/dL Urine Leukocyte Esterase NEGATIVELeu/ul Urine Hemoglobin NEGATIVEmg/dL Urine Glucose NEGATIVEmg/dL Urine Total Protein NEGATIVEmg/dl Sodium Level 141mmol/L Potassium Level 4.6mmol/L Chloride Level 103mmol/L Carbon Dioxide Level 24mmol/L Anion Gap 19 Blood Urea Nitrogen 16mg/dl Creatinine 1.65mg/dl Glucose Level 98mg/dl Calcium Level 9.0mg/dl Total Bilirubin 0.6mg/dl Direct Bilirubin 0.00mg/dl Indirect Bilirubin 0.6mg/dl Aspartate Amino Transf (AST/SGOT) 54IU/L Alanine Aminotransferase (ALT/SGPT) 30IU/L Alkaline Phosphatase 106IU/L Total Protein 8.5g/dl Albumin 5.0g/dl Globulin 3.50g/dl Albumin/Globulin Ratio 1.42 Lipase 107U/L Current Medications Medications (Trade) Dose Ordered Sig/Ramakrishna Route PRN Reason Start Time Stop Time Status Last Admin Dose Admin Sodium Chloride (NS) 1,000 ml @ 1,000 mls/hr Q1H STAT IV 03/04/17 16:36 03/04/17 17:35 DC 03/04/17 16:55 Ondansetron HCl (Zofran Inj) 4 mg ONCE STAT IV 03/04/17 16:36 03/04/17 16:37 DC 03/04/17 16:54 Ketorolac Tromethamine (Toradol) 30 mg ONCE STAT IV 03/04/17 16:36 03/04/17 16:37 DC 03/04/17 16:54 Procedures/MDM Differential diagnosis includes but is not limited to appendicitis, hernia, testicular torsion, UTI, constipation, nephrolithiasis, septic stone, obstructive stone, diverticulitis, epididymitis. Patient does have obstructive kidney stone however he is not septic. Patient does not have a history of fevers or chills and he is afebrile and extremely well-appearing in the ER. His pain was controlled here with Toradol. Patient did not have any evidence of urinary tract infection. Patient will be sent home with [place], ibuprofen, Zofran, Flomax. Patient is to follow-up with his primary care doctor within 1- 2 days return to ER sooner if symptoms worsen. My medical decision making was shared with the patient he understands and agrees with plan. Departure Diagnosis: Primary Impression: Kidney stone Condition: Stable NOÉ PEDROZA Mar 04, 2017 16:57
[2017-03-04 17:07] LABS: ADD UMIC NO; UR ASCORBIC ACID NEGATIVE (NEGATIVE); UR BILIRUBIN (Dip) NEGATIVE (NEGATIVE); UR BLOOD (Dip) NEGATIVE (NEGATIVE); UR CLARITY CLEAR (CLEAR); UR COLOR YELLOW (YELLOW); UR GLUCOSE (Dip) NEGATIVE (NEGATIVE); UR KETONES (Dip) NEGATIVE (NEGATIVE); UR LEUKOCYTE ESTERASE (Dip) NEGATIVE Leu/ul (NEGATIVE); UR NITRITE (Dip) NEGATIVE (NEGATIVE); UR SPECIFIC GRAVITY (Dip) 1.026 (1.003-1.030); UR TOTAL PROTEIN (Dip) NEGATIVE (NEGATIVE); UR UROBILINOGEN (Dip) NEGATIVE (NEGATIVE)
[2017-03-04 17:22] LABS: ALBUMIN/GLOBULIN RATIO 1.42; BILIRUBIN,INDIRECT 0.6 mg/dl (0-1.1); BILIRUBIN,TOTAL 0.6 mg/dl (0.2-1.3); CREATININE 1.65 mg/dl (0.61-1.24); POTASSIUM 4.6 mmol/L (3.5-5.1); TOTAL PROTEIN 8.5 g/dl (6.1-8.1)
--- NOTE | 2017-03-04 18:19 | RADRPT ---
PROCEDURE: CT Abdomen and Pelvis without contrast. CLINICAL INDICATION: Abdominal and pelvic pain. TECHNIQUE: CT scan of the abdomen and pelvis without contrast was performed. Coronal and sagittal reformatted images were obtained from the axial source images. Images were reviewed on a high-resolu [employer] PACS workstation. Total exam DLP is 1470.69 mGy-cm. CTDIvol is 22.37 mGy. One or more of the following dose reduction techniques were used: Automated exposure control, adjustment of the mA and/ or kV according to patient size, use of iterative reconstruction technique. COMPARISON: CT scan of the abdomen and pelvis dated 02/09/2017 which demonstrated an obstructing c alculus in the mid left ureter, diverticulosis of the sigmoid colon, hepatomegaly, fatty liver, and small bilateral fat containing inguinal hernias. FINDINGS: The lung bases are normal. There is no pleural effusion. The liver is enlarged and diffusely decreased attenuation consistent with fatty metamorphosis. Ther e is no focal hepatic lesion. The gallbladder and bile ducts are normal. The spleen is normal in size. There is no focal splenic lesion. Both adrenals are normal with no enlargement or mass. The pancreas is unremarkable with no mass or evidence of pancreatitis. There is no right renal mass, hydronephrosis, or calculus. There is no right ureteral calculus. There is moderate left hydroureteronephrosis due to an obstructing 0.6 cm calculus in the mid to dis lisy left ureter at the L4-5 level, slightly more distal than seen previously. There is no left сергей l calculus or mass. There is mild left perinephric edema. The abdominal aorta is not dilated. There is no retroperitoneal lymphadenopathy or mass. There is no pelvic lymphadenopathy or mass. The bladder and distal ureters are normal. The periappendiceal region is unremarkable with no evidence of appendicitis. There is diverticulosis of the sigmoid colon without evidence of diverticulitis. The bowel and mese ntery are otherwise normal. There are small fat-containing bilateral inguinal hernias. There is no free fluid or free gas. The osseous structures are unremarkable with no fracture or lytic lesion. IMPRESSION: 1. Hepatomegaly. 2. Fatty metamorphosis of the liver. 3. Obstructing calculus in the mid left ureter, slightly more distal than seen previously. 4. Diverticulosis of the sigmoid colon. No evidence of diverticulitis. 5. Small bilateral fat containing inguinal hernias. 6. Otherwise unremarkable noncontrast CT scan of the abdomen and pelvis. RPTAT: QQ .Mina Jacobson MD, Date Time Electronically viewed and signed by .Mina Jacobson MD, on 03/04/2017 18:19 .R/
[2017-03-04] MEDS ORDERED: ONDA-43 PO (18:30)
[2017-03-04] MEDS ORDERED: IBUP-1542 PO (18:30)
[2017-03-04] MEDS ORDERED: HYDR-906 PO (18:30)
[2017-03-04] MEDS ORDERED: TAMS-14 PO (18:31)
[2017-03-04 18:43] VITALS: BP 127/90; PULSE 79; RESP 17; TEMP 98.3
== END 2017-03-04 18:44 | disposition home or self-care (01) ==
LOC: FTE 16:02
DX: N20.0 Calculus of kidney (principal); R11.0 Nausea
CPT/HCPCS: 36415; 74176; 80053; 81003; 83690; 85025; 96374; 96375; J1885; J2405; J7030; Z7502

== ENCOUNTER 2017-08-26 11:07 | Emergency (ER) | END 2017-08-26 14:30 | disposition home or self-care (01) ==

== ENCOUNTER 2018-10-01 22:29 | Emergency (ER) | payer OTHER ==
[~2018-10-01] VITALS: Wt 121.5 kg
[~2018-10-01 22:29] MED LIST changes: +AZIT250T PO; -AZIT250T94 PO; +CIPR-193 PO; +DICY10CA40 PO; -DICY10CA60 PO; +HYDR-4011 PO; -HYDR-906 PO; +ONDA4TAB13 PO
[2018-10-02] MEDS ORDERED: POLY10DR19 LEFT EYE (03:56)
[2018-10-02] MEDS ORDERED: TETRACAINE 0.5% 4 ML OPH LEFT EYE ONE (04:00)
[2018-10-02] MEDS ORDERED: FLUORESCEIN STRIP LEFT EYE ONE (04:30)
[2018-10-02] MEDS: POLYMYXIN/TRIMETHOPRIM 10 ML OPH LEFT EYE ONE ×2 (04:31→04:42)
[2018-10-02] MEDS ORDERED: [UNRECOGNIZED DRUG - OTHER] (04:58)
[2018-10-02] MEDS ORDERED: zovirax OPHTHALMIC (04:59)
[2018-10-02 05:31] VITALS: BP 144/83; PULSE 77; RESP 20
--- NOTE | 2018-10-03 21:11 | ERD ---
ER Documentation Chief Complaint Chief Complaint L eye redness/ pain x2d. cough v4hlxss. vision WNL. HPI 48-year-old male presents with left eye redness for the past 2 days. In addition he states that he has had a nonproductive cough for 2 weeks. Denies any pain in his eye although he does states itching. States there is only thin watery discharge from the eye, denies any thick discharge. Denies limited EOMs or or impaired vision. Denies fevers, chills, chest pain, wheezing, shortness of breath. Denies past medical history. Denies allergies. Denies medications. Denies surgeries. Denies alcohol, tobacco, drug use. Up to date on vaccines. ROS All systems reviewed and are negative except as per history of present illness. Medications Home Meds Active Scripts [zovirax] No Conflict Check, OPHTHALMIC TID for 7 Days, #1 Prov:EMMA BARAJAS 10/02/18 [zov] No Conflict Check Prov:EMMA BARAJAS 10/02/18 Polymyxin B Sulfate-TMP* (Polymyxin B-TMP Eye Drops*) 10 Ml Drops, 1 DROP LEFT EYE QID for conjunctivitis for 7 Days, EA Prov:EMMA LITTLE 10/02/18 Tamsulosin Hcl* (Flomax*) 0.4 Mg Cap.er.24h, 0.4 MG PO DAILY, #30 CAP Prov:SUSANA ADDISON MD 08/26/17 Ibuprofen* (Motrin*) 600 Mg Tab, 600 MG PO Q8, #15 TAB Prov:SUSANA ADDISON MD 08/26/17 Ciprofloxacin Hcl* (Ciprofloxacin Hcl*) 250 Mg Tablet, 250 MG PO BID for 7 Days, #14 TAB Prov:SUSANA ADDISON MD 08/26/17 Tamsulosin Hcl* (Flomax*) 0.4 Mg Cap.er.24h, 0.4 MG PO QPM, #5 CAP Prov:NOÉ PEDROZA 03/04/17 Ondansetron Hcl* (Zofran*) 4 Mg Tab, 4 MG PO Q4H PRN for NAUSEA AND OR VOMITING for 5 Days, TAB Prov:NOÉ PEDROZA 03/04/17 Ibuprofen* (Motrin*) 600 Mg Tab, 600 MG PO Q6, #30 TAB Prov:YOVANYNOÉ C 03/04/17 Hydrocodone/Acetaminophen ([place] 5-325 Tablet) 1 Each Tablet, 1 TAB PO Q6H PRN for PAIN, #20 TAB Prov:NOÉ PEDROZA C 03/04/17 Tamsulosin Hcl* (Flomax*) 0.4 Mg Cap.er.24h, 0.4 MG PO QPM, #10 CAP Prov:JULI SAMANIEGO DO 02/09/17 Hydrocodone/Acetaminophen ([place] 5-325 Tablet) 1 Each Tablet, 1 TAB PO Q6H PRN for PAIN, #15 TAB Prov:BORTHALIAIKARENKAT DO 02/09/17 Acetaminophen* (Tylenol*) 325 Mg Tablet, 2 TAB PO Q6 PRN for PAIN AND OR ELEVATED TEMP, #20 TAB Prov:ADRIA TONEY PA-C 01/20/17 Promethazine HCl/Codeine (Prometh-Codein 6.25-10 mg/5 ml) 5 Ml Syrup, 5 ML PO Q6, #60 ML Prov:ADRIA TONEY PA-C 01/20/17 Azithromycin* (Zithromax*) 250 Mg Tablet, 250 MG PO .CAITY DIRECTED, #6 TAB TAKE 500 MG (2 TABS) THE FIRST DAY THEN 250 MG (1 TAB) DAYS 2-5 Prov:ADRIA TONEY PA-C 01/20/17 Sodium Chloride (Saline Nasal [place]) 30 Ml [place], 30 ML NS BID for 5 Days, SPRAY Prov:ADRIA TONEY PA-C 01/20/17 Dicyclomine HCl (Dicyclomine HCl) 10 Mg Capsule, 10 MG PO QID, #20 CAP Prov:NITIN MAHONEY PA-C 11/30/16 Metronidazole* (Flagyl*) 500 Mg Tablet, 500 MG PO TID for 5 Days, TAB Prov:NITIN MAHONEYC 11/30/16 Ciprofloxacin Hcl* (Ciprofloxacin Hcl*) 500 Mg Tablet, 500 MG PO BID for 5 Days, TAB Prov:NITIN MAHONEY PA-C 11/30/16 Ibuprofen* (Motrin*) 600 Mg Tab, 600 MG PO Q6, #30 TAB Prov:ROSEANNA ALANIS PA-C 05/21/16 Upkveuhikyf-C-Gzburuaoyh Hb* (Guaifenesin* DM Syrup) 120 Ml Syrup, 10 ML PO Q4H PRN for COUGH, #120 ML Prov:ROSEANNA ALANIS PA-C 05/21/16 Cephalexin* (Keflex*) 500 Mg Capsule, 500 MG PO QID for 7 Days, CAP Prov:TRUDY MCCARTNEY PA-C 03/18/16 Hydrocortisone* Topical (Hydrocortisone* Topical) 1%-28.35 Gm Cream..g., 1 APPLIC TOP BID PRN for ITCHING, #1 TUB Prov:TRUDY MCCARTNEY PA-C 03/18/16 Allergies Allergies: Coded Allergies: No Known Allergy (Unverified , 02/09/17) PMhx/Soc History of Surgery: No Anesthesia Reaction: No Hx Neurological Disorder: No Hx Respiratory Disorders: No Hx Cardiac Disorders: No Hx Psychiatric Problems: No Hx Miscellaneous Medical Probl: Yes (HIV POSITIVE) Hx Alcohol Use: No Hx Substance Use: No Hx Tobacco Use: No Smoking Status: Never smoker FmHx Family History: No diabetes, No coronary disease, No other Physical Exam Vitals Vital Signs Date Temp Pulse Resp B/P (MAP) Pulse Ox O2 O2 Flow FiO2 Time Delivery Rate 10/02/18 98.5 77 20 144/83 96 05:31 (103) 10/01/18 98.2 74 22 143/89 96 22:37 (107) Physical Exam General: Well developed, well nourished. No acute distress. Head: Atraumatic. No sinus tenderness to palpation. Eyes: PERRLA. EOM's intact. Scleral injection noted to left eye. Heart: RR w/o murmur, rubs, or gallops. Lungs: Clear to auscultation bilaterally w/o wheezes, crackles, rhonchi. Symmetric rise and fall. Equal breath sounds. Psych: Normal mood and affect. Eye Exam w/ jean lamp: Visual Garcia: Intact in all four quadrants bilaterally Lac ducts/glands: No swelling Lids w/ evertion: Normal, no foreign body Conj/[place]: Some fluoroscein staining noted in left eye, negative Waylon's Retina exam: No obvious abnormality Results 24 hrs Current Medications Medications Dose Sig/Ramakrishna Start Time Status Last (Trade) Ordered Route PRN Stop Time Admin Dose Reason Admin Polymyxin/ 1 drop ONCE ONCE 10/02/18 DC Trimethoprim LEFT EYE 04:00 Sulfate 10/02/18 04:01 (Polytrim Oph) Tetracaine 1 drop ONCE ONCE 10/02/18 DC HCl LEFT EYE 04:00 (Tetracaine 10/02/18 04:03 0.5% Steri-Unit Diane) Fluorescein 1 strip ONCE ONCE 10/02/18 DC Sodium LEFT EYE 04:30 (Nrquo-I-Hdkh 10/02/18 04:31 p) Procedures/MDM ER Course: Jean lamp exam performed, polytrim given. MDM: 48-year-old male presents with left eye redness for the past 2 days. In addition he states that he has had a nonproductive cough for 2 weeks. Denies any pain in his eye although he does states itching. States there is only thin watery discharge from the eye, denies any thick discharge. Denies limited EOMs or or impaired vision. Denies fevers, chills, chest pain, wheezing, shortness of breath. Due to the results of the Wood lamp exam, including some fluorescein staining on the cornea, patient was given Rx for Polytrim as well as acyclovir ophthalmic. Low suspicion for glaucoma, uveitis, iritis, globe rupture, foreign body, or other emergent condition. Patient discharged with strict ER precautions. Patient advised to follow up with PMD. All questions answered at discharge. Departure Diagnosis: Primary Impression: Conjunctivitis Conjunctivitis type: acute Acute conjunctivitis type: unspecified Laterality: left Qualified Codes: H10.32 - Unspecified acute conjunctivitis, left eye Condition: Stable Patient Instructions: Conjunctivitis, Non-Specific Additional Instructions: FOLLOW UP WITH YOUR PRIMARY CARE PHYSICIAN TOMORROW.Return to this facility if you are not improving as expected. EMMA LITTLE Oct 03, 2018 21:11
== END 2018-10-02 05:32 | disposition home or self-care (01) ==
LOC: FTE 22:29
DX: H10.32 Unspecified acute conjunctivitis, left eye (principal); Z21 Asymptomatic human immunodeficiency virus [HIV] infection status
CPT/HCPCS: Z7610 ×3; 99283